=== PATIENT | male | born 1970 | race Caucasian/White ===

== ENCOUNTER 2018-04-09 10:11 | Emergency (ER) | payer OTHER ==
--- NOTE | 2018-04-09 10:14 | PDOC ---
History of Present Illness - General Chief Complaint: Edema Stated Complaint: BEE STING TO RIGHT HAND SWELLING TO HAND/WRIST Time Seen by Provider: 04/09/18 10:14 History Source: Patient Exam Limitations: No Limitations - History of Present Illness Initial Comments: 47 yo M history allergy to bee stings presents with multiple stings to R hand. He states that 3 days ago, he just moved back into his house after a period of time away from it, there was a pot outside that he picked up and moved, at which point he found out there was a bee hive underneath it. He sustained multiple stings. He states that his hand became swollen and the skin feels tight. He has been taking cetirizine without relief. He has history of similar reactions in the past. He does not carry an epi-pen. No c/o airway symptoms. Past History - Past Medical History Allergies/Adverse Reactions: Allergies Allergy/AdvReac Type Severity Reaction Status Date / Time bee venom protein (honey bee) Allergy Intermediate Swelling Verified 04/09/18 10 :14 Home Medications: Ambulatory Orders EPINEPHrine (EPI-PEN 0.3MG) [Epipen 0.3MG -] 0.3 mg IM ASDIR #2 pens 04/09/18 predniSONE [Deltasone -] 40 mg PO DAILY #8 tablet 04/09/18 Review of Systems - Review of Systems Able to Perform ROS?: Yes Comments:: GENERAL/CONSTITUTIONAL: No fever or chills. No weakness. HEAD, EYES, EARS, NOSE AND THROAT: No change in vision. No ear pain or discharge. No sore throat. MUSCULOSKELETAL: No joint or muscle swelling or pain. No neck or back pain. SKIN: +Redness to R hand. NEUROLOGIC: No headache, vertigo, loss of consciousness, or change in strength/ sensation. ENDOCRINE: No increased thirst. No abnormal weight change. HEMATOLOGIC/LYMPHATIC: No anemia, easy bleeding, or history of blood clots. ALLERGIC/IMMUNOLOGIC: No hives. +Hand swelling at the sites of stings. *Physical Exam - Physical Exam Comments: GENERAL: Awake, alert, and fully oriented, in no acute distress HEAD: No signs of trauma ENT: Airway intact. Normal phonation. EXTREMITIES: R hand with erythema, non-pitting edema, warmth. No induration, no fluctuance, no open lesions. Remainder of extremities with normal range of motion, no edema. No clubbing or cyanosis. No cords, erythema, or tenderness NEUROLOGICAL: Cranial nerves II through XII grossly intact. Normal speech, normal gait. Motor and sensation intact. SKIN: Warm, Dry, normal turgor. Medical Decision Making - Medical Decision Making 04/09/18 10:24 Pt with reaction to R hand and wrist after bee stings, not improving with antihistamines alone. Will add prednisone and give rx for epi-pen. Although he does not have airway symptoms, it is mainly in case he gets a sting on his neck or face, which would put him at risk for airway compromise with local swelling. *DC/Admit/Observation/Transfer Diagnosis at time of Disposition: Allergic reaction to insect sting Qualifiers: Encounter type: initial encounter Injury intent: accidental or unintentional Qualified Code(s): T63.481A - Toxic effect of venom of other arthropod, accidental (unintentional), initial encounter - Discharge Dispostion Disposition: HOME Condition at time of disposition: Stable Decision to Admit order: No - Prescriptions Prescriptions: EPINEPHrine (EPI-PEN 0.3MG) [Epipen 0.3MG -] 0.3 mg IM ASDIR #2 pens predniSONE [Deltasone -] 40 mg PO DAILY #8 tablet - Referrals - Patient Instructions Printed Discharge Instructions: DI for Insect Allergy, DI for Insect Bites and Stings - Post Discharge Activity
[2018-04-09] MEDS ORDERED: predniSONE 20 MG TABLET (UD) PO ONE (10:16)
[2018-04-09] MEDS ORDERED: predniSONE 20 MG TABLET (UD) ONE (10:23)
[2018-04-09 10:31] VITALS: BP 119/81; PULSE 61; TEMP 98.6; BMI 24.0
== END 2018-04-09 10:30 | disposition home or self-care (01) ==
LOC: FER 10:11
DX: T63.481A Toxic effect of venom of other arthropod, accidental (unintentional), initial encounter (principal); Y93.89 Activity, other specified; Y92.89 Other specified places as the place of occurrence of the external cause
CPT/HCPCS: 99281-25